=== PATIENT | female | born 1960 | race Caucasian/White ===

== ENCOUNTER → 2016-03-01 | Outpatient (CLI) | payer OTHER ==
[~2016-03-01] MED LIST: ASCO500T3 PO; DXY100 PO; FLAX12003 PO; MAGN1TAB PO; PROGESTERONE CREAM INT UTER
== END | disposition home or self-care (01) ==
LOC: C.PATHSPEC 17:39
PROVIDERS: ATTEND Plastic Surgery
DX: L57.0 Actinic keratosis (principal); L82.1 Other seborrheic keratosis

== ENCOUNTER 2016-04-15 16:06 | Observation (INO) | payer OTHER ==
[~2016-04-15] VITALS: Ht 162.6 cm; Wt 65.1 kg
--- NOTE | 2016-04-15 18:31 | EMERGENCY ROOM VISIT NOTE ---
History Report prepared by Dora: Seferino Sheikh Under the Supervision of: Dr. Chris Bowman M.D. First contact with patient: 18:21 Chief Complaint: CHEST PAIN Stated Complaint: CHEST PAIN,SOB,SENT FROM URGENT CARE History of Present Illness The patient is a 55 year old female who presents to the Emergency Room with complaints of intermittent chest pain that started around 0230 this morning. She says she woke up to go to the bathroom, and ate 2 pieces of chocolate cake, and then started feeling a bit of pressure in her chest, which was accompanied with nausea, shortness of breath, and tingling in her fingers. She notes that she then got up in the morning and felt alright, but then as the day went on, the pain started to worsen. The patient went to Urgent Care and was sent here. Currently, she feels okay and denies any pain. The patient says she has been stressed for the last 2 months due to her father dying of heart disease. She personally has no history of heart problems. The patient smokes around 1 to 2 packs per day. She has no history of abdominal surgeries. The patient denies any abdominal pain, numbness in her legs, arm or jaw pain. The patient has a history of hypertension. She is not diabetic. Source of History: patient Onset: Around 0230 this morning Position: chest Quality: pressure Timing: intermittent Associated Symptoms: + SOB, + nausea, No abdominal pain, No numbness Note: Associated symptoms: Tingling in fingers. Denies arm or jaw pain. Review of Systems See HPI for pertinent positives & negatives. A total of 10 systems reviewed and were otherwise negative. Past Medical & Surgical Medical Problems: (1) HTN (hypertension) Family History FHx: heart disease Hypertension Social History Smoking Status: Current Every Day Smoker Alcohol Use: occasionally Marital Status: Housing Status: lives with family Occupation Status: unemployed Current/Historical Medications Scheduled Ascorbic Acid (Vitamin C), 500 MG PO DAILY Flaxseed (Linseed) (Flaxseed Oil), 1 CAP PO DAILY Magnesium Chloride-Calcium Car (Nu-Mag 71.5-119 mg), 1 TAB PO DAILY [Progesterone Cream], INT UTER UD Allergies Coded Allergies: Amoxicillin (Verified Allergy, Severe, HIVES/TONGUE SWELLS, 04/15/16) Metronidazole (Verified Allergy, Unknown, 04/15/16) Penicillins (Verified Allergy, Unknown, 04/15/16) Uncoded Allergies: ANTIINF (Allergy, Unknown, 04/15/16) Physical Exam Vital Signs Date Time Temp Pulse Resp B/P Pulse Ox O2 Delivery O2 Flow Rate FiO2 04/15/16 19:59 83 18 145/90 97 Room Air 04/15/16 18:58 86 04/15/16 18:44 98 Room Air 04/15/16 18:39 85 26 125/84 97 Room Air 04/15/16 18:25 98 Room Air 04/15/16 17:03 62 24 126/82 100 Room Air 04/15/16 16:11 37.0 90 18 173/92 97 Room Air Physical Exam GENERAL: Patient is mildly anxious appearing and in no acute distress. HEENT: No acute trauma, normocephalic atraumatic, mucous membranes moist, no nasal congestion, no scleral icterus. NECK: No stridor, no adenopathy, no meningismus, trachea is midline. LUNGS: No dyspnea. Clear to auscultation and equal bilaterally. No wheeze, no rhonchi. HEART: Regular rate and rhythm. No murmurs, rubs, gallops appreciated. ABDOMEN: Soft, nontender, bowel sounds positive, no masses appreciated, no peritonitis. BACK: No midline tenderness, no CVA tenderness EXTREMITIES: Normal motion all extremities, no cyanosis, no edema. NEUROLOGIC: Alert and oriented, no acute motor or sensory deficits, no focal weakness, cranial nerves grossly intact. SKIN: No rash, no jaundice, no diaphoresis. Medical Decision & Procedures ER Provider Diagnostic Interpretation: X ray results are stated below per my interpretation and the radiologist's interpretation. CHEST ONE VIEW PORTABLE CLINICAL HISTORY: Chest Pain dyspnea COMPARISON STUDY: No previous studies for comparison. FINDINGS: Minimal poorly defined parenchymal infiltrate left base. Lungs otherwise appear clear. No evidence for cardiac enlargement. Diaphragms smooth. IMPRESSION: Poorly defined parenchymal infiltrate left base Electronically signed by: Nael Glasgow M.D. 04/15/2016 6:51 PM Dictated Date/Time: 04/15/2016 6:50 PM Laboratory Results 04/15/16 18:38 Red Blood Count 3.93, Mean Corpuscular Volume 96.9, Mean Corpuscular Hemoglobin 33.3, Mean Corpuscular Hemoglobin Concent 34.4, Mean Platelet Volume 10.2, Neutrophils (%) (Auto) 60.0, Lymphocytes (%) (Auto) 26.9, Monocytes (%) (Auto) 11.2, Eosinophils (%) (Auto) 1.0, Basophils (%) (Auto) 0.7, Neutrophils # (Auto ) 3.53, Lymphocytes # (Auto) 1.58, Monocytes # (Auto) 0.66, Eosinophils # (Auto ) 0.06, Basophils # (Auto) 0.04 04/15/16 18:38 Test 04/15/16 18:38 White Blood Count 5.88 K/uL (4.8-10.8) Red Blood Count 3.93 M/uL (4.2-5.4) Hemoglobin 13.1 g/dL (12.0-16.0) Hematocrit 38.1 % (37-47) Mean Corpuscular Volume 96.9 fL (80-100) Mean Corpuscular Hemoglobin 33.3 pg (25-34) Mean Corpuscular Hemoglobin Concent 34.4 g/dl (32-36) Platelet Count 281 K/uL (130-400) Mean Platelet Volume 10.2 fL (7.4-10.4) Neutrophils (%) (Auto) 60.0 % Lymphocytes (%) (Auto) 26.9 % Monocytes (%) (Auto) 11.2 % Eosinophils (%) (Auto) 1.0 % Basophils (%) (Auto) 0.7 % Neutrophils # (Auto) 3.53 K/uL (1.4-6.5) Lymphocytes # (Auto) 1.58 K/uL (1.2-3.4) Monocytes # (Auto) 0.66 K/uL (0.11-0.59) Eosinophils # (Auto) 0.06 K/uL (0-0.5) Basophils # (Auto) 0.04 K/uL (0-0.2) RDW Standard Deviation 49.0 fL (36.4-46.3) RDW Coefficient of Variation 13.7 % (11.5-14.5) Immature Granulocyte % (Auto) 0.2 % Immature Granulocyte # (Auto) 0.01 K/uL (0.00-0.02) Anion Gap 9.0 mmol/L (3-11) Est Creatinine Clear Calc Drug Dose 80.0 ml/min Estimated GFR () 113.1 Estimated GFR (Non- 97.6 BUN/Creatinine Ratio 12.3 (10-20) Calcium Level 8.7 mg/dl (8.5-10.1) Magnesium Level 2.3 mg/dl (1.8-2.4) Total Bilirubin 0.4 mg/dl (0.2-1) Direct Bilirubin < 0.1 mg/dl (0-0.2) Aspartate Amino Transf (AST/SGOT) 14 U/L (15-37) Alanine Aminotransferase (ALT/SGPT) 20 U/L (12-78) Alkaline Phosphatase 92 U/L (45-117) Total Creatine Kinase 66 U/L (26-192) Creatine Kinase MB 1.1 ng/ml (0.5-3.6) Creatine Kinase MB Ratio 1.7 (0-3.0) Troponin I 0.017 ng/ml (0-0.045) Total Protein 6.9 gm/dl (6.4-8.2) Albumin 3.7 gm/dl (3.4-5.0) Lipase 161 U/L (73-393) Laboratory results as reviewed by me. Medications Administered Medications (Trade) Dose Ordered Sig/Logan Route Start Time Stop Time Status Last Admin Dose Admin Aspirin (Aspirin Chew) 324 mg NOW STAT PO 04/15/16 19:36 04/15/16 19:38 DC 04/15/16 20:00 324 MG ECG Indication: chest pain Rate (beats per minute): 91 Rhythm: normal sinus Findings: no acute ischemic change, no ectopy ED Course 1821: The patient was evaluated in room B7. A complete history and physical exam was performed. 1927: I reevaluated the patient and she says she has no further chest pain. The patient verbally expressed understanding and agreement of the treatment plan. The patient will be evaluated for further treatment. 1935: Ordered Aspirin Chew 324 mg PO. 1949: I discussed the patient with Dr. Peter Sanches photographic artist - he will evaluate the patient for further treatment. Medical Decision Differential: Cardiac Ischemia (STEMI, NSTEMI, Unstable Angina, etc), Aortic Dissection, Arrhythmia, Pulmonary Embolism, Pneumonia, Pneumothorax, MSK, Infectious, Pericarditis/Myocarditis, Esophageal Rupture, Gastrointestinal, amongst other pathologies entertained. 55 yr old pleasant female notes intermittent substernal chest pressure over last 24 hours. Heavy smoker with HTN and multiple family members with CAD. She has several cardiac risk factors and a non-negative though wnl trop. CXR clear with normal other labs. With her CAD risk factors and description of pain I do not feel that ED cardiac rule out reasonable and thus will bring in to hospitalist service for further evaluation/treatment. Consults Time Called: 1939 Consulting Physician: Dr. Peter Sanches photographic artist Returned Call: 1949 I discussed the patient with Dr. Peter Sanches photographic artist - he will evaluate the patient for further treatment. Impression Primary Impression: Substernal chest pain Scribe Attestation The scribe's documentation has been prepared under my direction and personally reviewed by me in its entirety. I confirm that the note above accurately reflects all work, treatment, procedures, and medical decision making performed by me. Departure Information Dispostion Being Evaluated By Hospitalist Referrals Mercy Linares D.O. (PCP) Patient Instructions My [facility]
[2016-04-15 18:52] LABS: BASO % 0.7 %; BASO ABS # 0.04 K/uL (0-0.2); COMPLETE YES; HEMATOCRIT 38.1 % (37-47); IG% 0.2 %; LYMPH % 26.9 %; LYMPH ABS # 1.58 K/uL (1.2-3.4); MEAN CELL VOLUME 96.9 fL (80-100); MEAN CORPUSCULAR HEMOGLOBIN 33.3 pg (25-34); MEAN CORPUSCULAR HGB CONC 34.4 g/dl (32-36); MEAN PLATELET VOLUME 10.2 fL (7.4-10.4); MONO % 11.2 %; PLATELET COUNT 281 K/uL (130-400); RED BLOOD COUNT 3.93 M/uL (4.2-5.4); WHITE BLOOD COUNT 5.88 K/uL (4.8-10.8)
--- NOTE | 2016-04-15 18:52 | DIAGNOSTIC IMAGING REPORT ---
CHEST ONE VIEW PORTABLE CLINICAL HISTORY: Chest Pain dyspnea COMPARISON STUDY: No previous studies for comparison. FINDINGS: Minimal poorly defined parenchymal infiltrate left base. Lungs otherwise appear clear. No evidence for cardiac enlargement. Diaphragms smooth. IMPRESSION: Poorly defined parenchymal infiltrate left base Electronically signed by: Nael Glasgow M.D. 04/15/2016 6:51 PM Dictated Date/Time: 04/15/2016 6:50 PM
[2016-04-15 19:10] LABS: BUN/CREATININE RATIO 12.3 (10-20); CALCIUM 8.7 mg/dl (8.5-10.1); CREATININE 0.67 mg/dl (0.60-1.20); POTASSIUM 3.6 mmol/L (3.5-5.1)
[2016-04-15 19:15] LABS: CKMB/CK RATIO 1.7 (0-3.0)
[2016-04-15] MEDS ORDERED: MAGN1TAB PO (19:17)
[2016-04-15] MEDS ORDERED: FLAX12003 PO (19:17)
[2016-04-15] MEDS ORDERED: ASCO500T3 PO (19:17)
[2016-04-15] MEDS ORDERED: PROGESTERONE CREAM INT UTER (19:17)
[2016-04-15] MEDS ORDERED: ASPIRIN 324 MG CHEW PO STA (19:36)
[2016-04-15 20:55] LABS: ALKALINE PHOSPHATASE 92 U/L (45-117); ALT/SGPT 20 U/L (12-78); AST/SGOT 14 U/L (15-37)
[2016-04-15] MEDS ORDERED: MoRPHine SULFATE 4 MG/ML 1 ML CARP\\VIAL IV PRN (21:45)
[2016-04-15] MEDS ORDERED: NITROGLYCERIN 0.4 MG SL PER TAB CHARGE SL PRN (21:45)
[2016-04-15] MEDS ORDERED: TRAMADOL HCL 50 MG TAB PO PRN (21:45)
[2016-04-15] MEDS ORDERED: IV FLUIDS COMPLETED PRN (21:45)
[2016-04-15] MEDS ORDERED: ONDANSETRON INJ 2 MG/ML 2 ML VIAL IV PRN (21:45)
[2016-04-15] MEDS ORDERED: ACETAMINOPHEN 325 MG TAB PO PRN (21:45)
[2016-04-15] MEDS ORDERED: DOXYCYCLINE HYCLATE 100 MG CAP PO STA (22:06)
[2016-04-15 22:29] LABS: PARTIAL THROMBOPLASTIN RATIO 1.1
[2016-04-15 23:38] VITALS: BP 114/78; PULSE 78; TEMP 36.7; O2SAT 97; Ht 162.6 cm; Wt 65.1 kg
[2016-04-16 03:10] LABS: BASO % 0.7 %; BASO ABS # 0.03 K/uL (0-0.2); COMPLETE YES; EOS % 3.4 %; HEMATOCRIT 37.1 % (37-47); IG% 0.4 %; LYMPH % 31.9 %; LYMPH ABS # 1.42 K/uL (1.2-3.4); MEAN CELL VOLUME 97.4 fL (80-100); MEAN CORPUSCULAR HEMOGLOBIN 33.1 pg (25-34); MONO % 16.4 %; NEUT % 47.2 %; PLATELET COUNT 260 K/uL (130-400); RED BLOOD COUNT 3.81 M/uL (4.2-5.4); WHITE BLOOD COUNT 4.45 K/uL (4.8-10.8)
[2016-04-16 03:21] VITALS: BP 146/88; PULSE 71; TEMP 36.9; O2SAT 98
[2016-04-16 03:34] LABS: CHOLESTEROL 147 mg/dl (0-200); CHOLESTEROL/HDL RATIO 2.1; HDL CHOLESTEROL 69 mg/dl; LDL CHOLESTEROL CALCULATED 50 mg/dl; TRIGLYCERIDES 142 mg/dl (0-150); VERY LOW DENSITY LIPOPROT CALC 28 mg/dl
--- NOTE | 2016-04-16 04:26 | HISTORY & PHYSICAL EXAMINATION ---
DATE OF ADMISSION: 04/15/2016 PRIMARY CARE PHYSICIAN: Dr. Linares. CHIEF COMPLAINT: Chest pain. Hx obtained from px and records. HISTORY OF PRESENT ILLNESS: Medical history significant for situational HTN and ongoing tobacco abuse. Patient had substernal discomfort, pressure like, with some shortness of breath after eating couple bites of cakes, not burning. No previous episodes. Patient admits to some dry to junky cough symptoms. No fever, no chills. No sick contacts. Admits to some personal stressors more than usual of late. Patient is currently comfortable. MEDICAL HISTORY: As above. SURGERIES: Some gynecologic procedures. HOME MEDICATIONS: Include ascorbic acid, flaxseed, mag, progesterone. ALLERGIES: AMOXICILLIN, PENICILLIN. FAMILY HISTORY: Heart disease. PERSONAL AND SOCIAL HISTORY: Pack daily. No chronic intake of alcoholic beverages. Homemaker. REVIEW OF SYSTEMS: As per HPI. all other ROS negative PHYSICAL EXAMINATION: VITAL SIGNS: Blood pressure was noted to be 130/80, pulse 90, RR 20, temperature 37, O2 sats 100 on room air. GENERAL: Noted to be slightly anxious, no respiratory distress. SKIN: Normal color. HEENT: [place] palpable conjunctivae. Dry mucosa. NECK: No JVD. LUNGS: Clear to auscultation. No anterior chest tenderness. HEART: Regular rate and rhythm. ABDOMEN: Soft. EXTREMITIES: No edema. no tenderness NEUROLOGIC: No gross focality. LABORATORY DATA: Hemoglobin was 13, hematocrit 38, white cell count 5, platelets 280. Sodium 140, potassium 3.6, chloride 105, CO2 28, BUN 8, creatinine 0.6, glucose 100. Troponin was noted to be 0.07. D-dimer was normal. EKG no ischemia. CXR possible infiltrate in the left base ASSESSMENT: 1. Atypical chest pain ? transient esophageal spasm rule out acute coronary syndrome anxiety contributory 2. CAP, no sepsis 3. situational HTN as per records 4. ongoing tobacco abuse. PLAN: Observation PCU ASA for now for CAD prevention until ACS ruled out, Follow troponin. 2D echo in the morning. RE cp Home in AM px symptomatically well, AM troponin and resting 2D echo normal. Patient refuses stress test. Family member during stress test before. Doxycycline for pneumonia. anxiolytic prn Nicotine patch. DVT prophylaxis, Lovenox subQ. Full code. MTDD
[2016-04-16 07:42] VITALS: BP 155/89; PULSE 74; TEMP 36.5; O2SAT 95
[2016-04-16 07:52] LABS: PROTHROMBIN TIME (PATIENT) 10.5 SECONDS (9.0-12.0)
[2016-04-16] MEDS: DOXYCYCLINE HYCLATE 100 MG CAP PO SCH ×2 (08:51→15:40)
[2016-04-16] MEDS ORDERED: ASPIRIN 81 MG ECTAB PO SCH (09:00)
[2016-04-16] MEDS ORDERED: ENOXAPARIN 40 MG/0.4 ML SYR SC SCH (09:00)
[2016-04-16] MEDS ORDERED: NICOTINE 21 MG/24 HR TDSY TD SCH (09:00)
[2016-04-16 11:55] VITALS: BP 135/83; PULSE 74; TEMP 36.9; O2SAT 97
[2016-04-16 11:56] VITALS: O2SAT 95
--- NOTE | 2016-04-16 14:02 | ECHOCARDIOGRAM REPORT ---
*NOTICE TO RECEIVING CONSTITUTION PARTY AGENCY This information is strictly Confidential and protected under [place] law. [place] law prohibits you from making any further disclosure of this information unless further disclosure is expressly permitted by the written consent of the person to whom it pertains or is authorized by law. A general authorization for the release of medical or other information is not sufficient for this purpose. Hospital accepts no responsibility if the information is made available to any other person, INCLUDING THE PATIENT. Interpretation Summary * Name: GENI CHOUDHARY Study Date: 04/16/2016 10:39 AM BP: 146/88 mmHg * Patient Location: [facility] HR: 71 * : 1960 (M/d/yyyy) Gender: Female Height: 64 in * Age: 55 yrs Ethnicity: [place] Weight: 144 lb * Ordering Physician: Jan Green * Performed By: Santa Valdivia * * Reason For Study: CHEST PAIN * BSA: 1.7 m2 * -- Conclusions -- * The left ventricular wall motion is normal. * The LV Ejection Fraction = 60-65%. * Grade I diastolic dysfunction, (abnormal relaxation pattern). * There is no significant valvular heart disease. Procedure Details * A complete two-dimensional transthoracic echocardiogram was performed (2D, M-mode, Doppler and color flow Doppler). Left Ventricle * The left ventricle is normal in size. * There is normal left ventricular wall thickness. * Left ventricular systolic function is normal. * Ejection Fraction = 60-65%. * The left ventricular wall motion is normal. Right Ventricle * The right ventricle is normal size. * The right ventricular systolic function is normal as assessed by tricuspid annular plane systolic excursion (TAPSE) (normal >1.5 cm). Atria * The left atrial size is normal. * Right atrial size is normal. * There is no evidence of atrial septal defect, but resolution does not allow assessment for a patent foramen ovale. Mitral Valve * The mitral valve is normal. * There is no mitral valve stenosis. * Significant mitral regurgitation is absent. Tricuspid Valve * The tricuspid valve is normal. * There is no tricuspid stenosis. * Significant tricuspid regurgitation is absent. * Doppler findings do not suggest pulmonary hypertension. Aortic Valve * The aortic valve is trileaflet. * Aortic stenosis is absent. * There is no significant aortic regurgitation. Pulmonic Valve * The pulmonary valve is not well seen, but the Doppler examination is normal without significant regurgitation or stenosis. Great Vessels * The aortic root and proximal ascending aorta are normal sized. Pericardium/Pleural * There is no pericardial effusion. Great Vessels * Normal inferior vena cava diameter and respiratory variation suggests normal central venous pressure. Left Ventricular Diastolic Function * Grade I diastolic dysfunction, (abnormal relaxation pattern). MMode 2D Measurements and Calculations IVSd 1.8 cm IVSs 2.0 cm LVIDd 3.3 cm LVIDs 2.2 cm LVPWd 1.0 cm LVPWs 1.3 cm IVS/LVPW 1.8 FS 32.2 % EDV(Teich) 44.4 ml ESV(Teich) 17.0 ml EF(Teich) 61.7 % EDV(cubed) 36.2 ml ESV(cubed) 11.3 ml EF(cubed) 68.8 % % IVS thick 11.0 % % LVPW thick 33.4 % LV mass(C)d 162.6 grams LV mass(C)dI 95.6 grams/m\S\2 LV mass(C)s 137.8 grams LV mass(C)sI 81.0 grams/m\S\2 CO(Teich) 1.9 l/min CI(Teich) 1.1 l/min/m\S\2 SV(Teich) 27.4 ml SI(Teich) 16.1 ml/m\S\2 CO(cubed) 1.7 l/min CI(cubed) 1.0 l/min/m\S\2 SV(cubed) 24.9 ml SI(cubed) 14.7 ml/m\S\2 ACS 1.3 cm LA dimension 3.5 cm asc Aorta Diam 3.7 cm LVOT diam 2.0 cm LVOT area 3.1 cm\S\2 LVAd ap4 24.7 cm\S\2 LVLd ap4 7.6 cm EDV(MOD-sp4) 65.7 ml LVAs ap4 13.5 cm\S\2 LVLs ap4 6.4 cm ESV(MOD-sp4) 24.1 ml EF(MOD-sp4) 63.3 % LVAd ap2 20.2 cm\S\2 LVLd ap2 7.2 cm EDV(MOD-sp2) 48.0 ml LVAs ap2 11.0 cm\S\2 LVLs ap2 5.9 cm ESV(MOD-sp2) 17.9 ml EF(MOD-sp2) 62.7 % CO(MOD-sp4) 2.9 l/min CI(MOD-sp4) 1.7 l/min/m\S\2 SV(MOD-sp4) 41.6 ml SI(MOD-sp4) 24.5 ml/m\S\2 CO(MOD-sp2) 2.1 l/min CI(MOD-sp2) 1.2 l/min/m\S\2 SV(MOD-sp2) 30.1 ml SI(MOD-sp2) 17.7 ml/m\S\2 Doppler Measurements and Calculations MV E max arnaldo 48.3 cm/sec MV A max arnaldo 37.9 cm/sec MV E/A 1.3 MV dec time 0.14 sec Ao V2 max 107.5 cm/sec Ao max PG 4.6 mmHg Ao max PG (full) 1.3 mmHg LYNDA(V,A) 2.7 cm\S\2 LYNDA(V,D) 2.7 cm\S\2 LV V1 max PG 3.3 mmHg LV V1 mean PG 1.7 mmHg LV V1 max 90.6 cm/sec LV V1 mean 61.8 cm/sec LV V1 VTI 21.6 cm SV(LVOT) 67.9 ml SI(LVOT) 39.9 ml/m\S\2 PA V2 max 79.5 cm/sec PA max PG 2.5 mmHg PI end-d arnaldo 119.4 cm/sec
[2016-04-16] MEDS ORDERED: DXY100 PO (14:54)
--- NOTE | 2016-04-16 14:54 | Discharge Instructions ---
Discharge Instructions Admission Reason for Admission: Substernal Chest Pain Discharge Discharge Diagnosis / Problem: CHEST PAIN /NO EVICENCE OF CARDIAC SYMPTOM / PNEUMONIA Discharge Goals Goal(s): Improve disease control Activity Recommendations Activity Limitations: resume your previous activity . Instructions / Follow-Up Instructions / Follow-Up HOSPITAL FOLLOW UP ON 04/23/2016 @ 10:[address] Mercy Linares, DO [facility] Current Hospital Diet Patient's current hospital diet: AHA Diet (Heart Healthy) Discharge Diet Recommended Diet: AHA Diet (Heart Healthy) Pending Studies Studies pending at discharge: no Laboratory Results Lipid Panel Test 04/16/16 03:00 Range/Units Triglycerides Level 142 0-150 mg/dl Cholesterol Level 147 0-200 mg/dl HDL Cholesterol 69 mg/dl Cholesterol/HDL Ratio 2.1 LDL Cholesterol, Calculated 50 mg/dl Medical Emergencies . Who to Call and When: Medical Emergencies: If at any time you feel your situation is an emergency, please call 911 immediately. . Non-Emergent Contact Non-Emergency issues call your: Primary Care Provider . . "Provider Documentation" section prepared by Hope Cooper. VTE Core Measure Inpt VTE Proph given/why not?: Enoxaparin (Lovenox)SQ
[2016-04-16 15:24] VITALS: BP 135/83; PULSE 74; TEMP 36.9; O2SAT 95
--- NOTE | 2016-04-16 16:22 | Progress Note ---
Internal Med Progress Note Date of Service: Apr 16, 2016. Provider Documentation: SUBJECTIVE: no complain of chest pain no discomfort or severe mid chest discomfort with meals has non productive cough no fever or chills OBJECTIVE: Vital Signs-as noted below Exam: General-no sign of distress, anxious Eyes-sclera non icteric ENT-NAD Neck-no thyromegaly Lungs-CTA Heart-regular S1/S2, no lower ext edema , no JVD Abdomen-soft, non tender Extremities-no rash or deformity Neuro-no focal deficit Lab data as noted below. ASSESSMENT & PLAN: CHEST PAIN : atypical for angina symptom resolved since admission no SOB ,no COOPER EKG -no ischemic change serial cardiac markers are negative ECHO : no wall motion abnormality , EF 60-65 % , grade 1 diastolic dysfunction stable to be discharged home today does not want to have a stress test Family physician follow up as out patient CHEST DISCOMFORT AFTER MEALS feels sharp pain radiation to back in mid chest after meals , had 3 episodes in past 2 days none since admission possible esophageal spasm denies of any GERD symptoms. no dysphagia or feeling of food getting stuck in middle chest pt is counselled for small portion , chewing food adequately will benefit with out pt GI eval and possible EGD PNEUMONIA : possible contributing the chest pain no fever , normal white count has non productive cough Cxray Poorly defined parenchymal infiltrate left base empiric ABx with Doxycycline for 5 days DVT PROPHYLAXIS [sub q Lovenox DISPOSITION Discharge home today Vital Signs: Date Time Temp Pulse Resp B/P Pulse Ox O2 Delivery O2 Flow Rate FiO2 04/16/16 15:24 36.9 74 19 95 Room Air 04/16/16 11:56 95 Room Air 04/16/16 11:55 36.9 74 19 135/83 97 Room Air 04/16/16 07:58 Room Air 04/16/16 07:42 36.5 74 19 155/89 95 Room Air 04/16/16 04:10 Room Air 04/16/16 03:21 36.9 71 18 146/88 98 Room Air 04/15/16 23:38 36.7 78 20 114/78 97 Room Air 04/15/16 22:55 91 18 118/83 97 04/15/16 19:59 83 18 145/90 97 Room Air 04/15/16 18:58 86 04/15/16 18:44 98 Room Air 04/15/16 18:39 85 26 125/84 97 Room Air 04/15/16 18:25 98 Room Air 04/15/16 17:03 62 24 126/82 100 Room Air Lab Results: Results Past 24 Hours Test 04/15/16 18:38 04/16/16 03:00 04/16/16 06:55 Range/Units White Blood Count 5.88 4.45 4.8-10.8 K/uL Red Blood Count 3.93 3.81 4.2-5.4 M/uL Hemoglobin 13.1 12.6 12.0-16.0 g/dL Hematocrit 38.1 37.1 37-47 % Mean Corpuscular Volume 96.9 97.4 80-100 fL Mean Corpuscular Hemoglobin 33.3 33.1 25-34 pg Mean Corpuscular Hemoglobin Concent 34.4 34.0 32-36 g/dl Platelet Count 281 260 130-400 K/uL Mean Platelet Volume 10.2 10.0 7.4-10.4 fL Neutrophils (%) (Auto) 60.0 47.2 % Lymphocytes (%) (Auto) 26.9 31.9 % Monocytes (%) (Auto) 11.2 16.4 % Eosinophils (%) (Auto) 1.0 3.4 % Basophils (%) (Auto) 0.7 0.7 % Neutrophils # (Auto) 3.53 2.10 1.4-6.5 K/uL Lymphocytes # (Auto) 1.58 1.42 1.2-3.4 K/uL Monocytes # (Auto) 0.66 0.73 0.11-0.59 K/uL Eosinophils # (Auto) 0.06 0.15 0-0.5 K/uL Basophils # (Auto) 0.04 0.03 0-0.2 K/uL RDW Standard Deviation 49.0 49.4 36.4-46.3 fL RDW Coefficient of Variation 13.7 13.7 11.5-14.5 % Immature Granulocyte % (Auto) 0.2 0.4 % Immature Granulocyte # (Auto) 0.01 0.02 0.00-0.02 K/uL Activated Partial Thromboplast Time 28.8 21.0-31.0 SECONDS Partial Thromboplastin Ratio 1.1 D-Dimer 290 0-500 ug/L FEU Sodium Level 142 136-145 mmol/L Potassium Level 3.6 3.5-5.1 mmol/L Chloride Level 105 98-107 mmol/L Carbon Dioxide Level 28 21-32 mmol/L Anion Gap 9.0 3-11 mmol/L Blood Urea Nitrogen 8 7-18 mg/dl Creatinine 0.67 0.60-1.20 mg/dl Est Creatinine Clear Calc Drug Dose 80.0 ml/min Estimated GFR () 113.1 Estimated GFR (Non- 97.6 BUN/Creatinine Ratio 12.3 10-20 Random Glucose 105 70-99 mg/dl Calcium Level 8.7 8.5-10.1 mg/dl Magnesium Level 2.3 1.8-2.4 mg/dl Total Bilirubin 0.4 0.2-1 mg/dl Direct Bilirubin < 0.1 0-0.2 mg/dl Aspartate Amino Transf (AST/SGOT) 14 15-37 U/L Alanine Aminotransferase (ALT/SGPT) 20 12-78 U/L Alkaline Phosphatase 92 45-117 U/L Total Creatine Kinase 66 26-192 U/L Creatine Kinase MB 1.1 0.5-3.6 ng/ml Creatine Kinase MB Ratio 1.7 0-3.0 Troponin I 0.017 < 0.015 0-0.045 ng/ml Total Protein 6.9 6.4-8.2 gm/dl Albumin 3.7 3.4-5.0 gm/dl Lipase 161 73-393 U/L Triglycerides Level 142 0-150 mg/dl Cholesterol Level 147 0-200 mg/dl HDL Cholesterol 69 mg/dl LDL Cholesterol, Calculated 50 mg/dl VLDL Cholesterol, Calculated 28 mg/dl Cholesterol/HDL Ratio 2.1 Prothrombin Time 10.5 9.0-12.0 SECONDS Prothromb Time International Ratio 1.0 0.9-1.1
--- NOTE | 2016-04-16 16:24 | Discharge Summary ---
Discharge Summary Admission Date: Apr 15, 2016 at 21:16 Discharge Date: Apr 16, 2016 Discharge Disposition: Home Principal Diagnosis: CHEST PAIN /NO EVIDENCE OF CARDIAC SYMPTOM /PNEUMONIA Medication Reconciliation New Medications: Doxycycline Hyclate (Doxycycline Hyclate) 100 Mg Cap 100 MG PO BID for 4 Days, #8 CAP Continued Medications: Ascorbic Acid (Vitamin C) 500 Mg Tab 500 MG PO DAILY Flaxseed (Linseed) (Flaxseed Oil) 1 Cap Cap 1 CAP PO DAILY Magnesium Chloride-Calcium Car (Nu-Mag 71.5-119 mg) 1 Tab Tab 1 TAB PO DAILY [Progesterone Cream] () INT UTER UD 2WEEKS ON/ 2 WEEKS OFF Admission Information HPI (per Admitting provider): DATE OF ADMISSION: 04/15/2016 PRIMARY CARE PHYSICIAN: Dr. Linares. CHIEF COMPLAINT: Chest pain. Hx obtained from px and records. HISTORY OF PRESENT ILLNESS: Medical history significant for situational HTN and ongoing tobacco abuse. Patient had substernal discomfort, pressure like, with some shortness of breath after eating couple bites of cakes, not burning. No previous episodes. Patient admits to some dry to junky cough symptoms. No fever, no chills. No sick contacts. Admits to some personal stressors more than usual of late. Patient is currently comfortable. MEDICAL HISTORY: As above. SURGERIES: Some gynecologic procedures. HOME MEDICATIONS: Include ascorbic acid, flaxseed, mag, progesterone. ALLERGIES: AMOXICILLIN, PENICILLIN. FAMILY HISTORY: Heart disease. PERSONAL AND SOCIAL HISTORY: Pack daily. No chronic intake of alcoholic beverages. Homemaker. REVIEW OF SYSTEMS: As per HPI. all other ROS negative Physical Exam (per Admitting): PHYSICAL EXAMINATION: VITAL SIGNS: Blood pressure was noted to be 130/80, pulse 90, RR 20, temperature 37, O2 sats 100 on room air. GENERAL: Noted to be slightly anxious, no respiratory distress. SKIN: Normal color. HEENT: [place] palpable conjunctivae. Dry mucosa. NECK: No JVD. LUNGS: Clear to auscultation. No anterior chest tenderness. HEART: Regular rate and rhythm. ABDOMEN: Soft. EXTREMITIES: No edema. no tenderness NEUROLOGIC: No gross focality. Hospital Course CHEST PAIN : atypical for angina symptom resolved since admission no SOB ,no COOPER EKG -no ischemic change serial cardiac markers are negative ECHO : no wall motion abnormality , EF 60-65 % , grade 1 diastolic dysfunction stable to be discharged home today does not want to have a stress test Family physician follow up as out patient CHEST DISCOMFORT AFTER MEALS feels sharp pain radiation to back in mid chest after meals , had 3 episodes in past 2 days none since admission possible esophageal spasm denies of any GERD symptoms. no dysphagia or feeling of food getting stuck in middle chest pt is counselled for small portion , chewing food adequately will benefit with out pt GI eval and possible EGD PNEUMONIA : possible contributing the chest pain no fever , normal white count has non productive cough Cxray Poorly defined parenchymal infiltrate left base empiric ABx with Doxycycline for 5 days DVT PROPHYLAXIS [sub q Lovenox DISPOSITION Discharge home today Discharge Instructions DI: Medical v4 Discharge Instructions Admission Reason for Admission: Substernal Chest Pain Discharge Discharge Diagnosis / Problem: CHEST PAIN /NO EVIDENCE OF CARDIAC SYMPTOM / PNEUMONIA Discharge Goals Goal(s): Improve disease control Activity Recommendations Activity Limitations: resume your previous activity . Instructions / Follow-Up Instructions / Follow-Up HOSPITAL FOLLOW UP ON 04/23/2016 @ 10:[address] Mercy Linares, DO [facility] Current Hospital Diet Patient's current hospital diet: AHA Diet (Heart Healthy) Discharge Diet Recommended Diet: AHA Diet (Heart Healthy) Pending Studies Studies pending at discharge: no Laboratory Results Lipid Panel Test 04/16/16 03:00 Range/Units Triglycerides Level 142 0-150 mg/dl Cholesterol Level 147 0-200 mg/dl HDL Cholesterol 69 mg/dl Cholesterol/HDL Ratio 2.1 LDL Cholesterol, Calculated 50 mg/dl Medical Emergencies . Who to Call and When: Medical Emergencies: If at any time you feel your situation is an emergency, please call 911 immediately. . Non-Emergent Contact Non-Emergency issues call your: Primary Care Provider . . "Provider Documentation" section prepared by Hope Cooper. VTE Core Measure Inpt VTE Proph given/why not?: Enoxaparin (Lovenox)SQ
== END 2016-04-16 15:45 | disposition home or self-care (01) ==
LOC: ENRESERVTM → ENRESERVDT → C.EDB 16:07 → C.2T 21:16
PROVIDERS: ADMIT Hospitalist; ATTEND Hospitalist
DX: R07.89 Other chest pain (principal); J18.9 Pneumonia, unspecified organism; F17.210 Nicotine dependence, cigarettes, uncomplicated; I10 Essential (primary) hypertension; Z82.49 Family history of ischemic heart disease and other diseases of the circulatory system

== ENCOUNTER → 2016-07-04 | Outpatient (CLI) | payer OTHER | END | disposition home or self-care (01) | LOC: C.PAPS 09:06 | PROVIDERS: ATTEND Obstetrics & Gynecology | DX: Z12.4 Encounter for screening for malignant neoplasm of cervix (principal); D25.9 Leiomyoma of uterus, unspecified ==

== ENCOUNTER → 2017-07-16 | Outpatient (CLI) | payer OTHER | END | disposition home or self-care (01) | LOC: C.PAPS 15:44 | PROVIDERS: ATTEND Obstetrics & Gynecology | DX: Z12.4 Encounter for screening for malignant neoplasm of cervix (principal) ==

== ENCOUNTER → 2017-07-16 | Outpatient (CLI) | payer OTHER | END | disposition home or self-care (01) | LOC: C.LABSPEC 15:01 | PROVIDERS: ATTEND Obstetrics & Gynecology | DX: R30.0 Dysuria (principal); N76.0 Acute vaginitis ==

== ENCOUNTER 2021-10-25 16:41 | Inpatient (IN) ==
[~2021-10-25 16:41] MED LIST changes: -ASCO500T3 PO; -DXY100 PO; -FLAX12003 PO; +FOLIC ACID 1 MG TAB PO SCH; -MAGN1TAB PO; -PROGESTERONE CREAM INT UTER; +THIAMINE HCL 100 MG TAB PO SCH
--- NOTE | 2021-10-25 17:02 | Emergency Department Note ---
Impression & Plan Alcohol withdrawal, Nausea & vomiting, Transaminitis, Hyponatremia ED Provider Note NAME: GENI CHOUDHARY AGE: 60 SEX: F : 1960 ARRIVES VIA: Ambulance INFORMANT: [Patient][, ] ED PROVIDER(S): [Mushtaq Rodas MD] Chief Complaint: Nausea vomiting HPI: Patient presents due to concern for nausea vomiting in the setting of recent diarrheal illness over approximately week in duration. The patient really had the nausea and vomiting beginning today. The patient denies any known sick contacts or recent travel. No stream or well water the patient had seen her primary care doctor and started on Imodium. The patient does have the "shakes." The patient is a daily drinker and family were bedside states that she will drink typically anywhere from 5-10 beers daily. The patient last had a drink on Saturday. Patient denies any chest pains or shortness of breath she does complain of some abdominal cramping and discomfort secondary to the vomiting. Patient is unsure as whether or not she has had some associated blood in the vomit. Patient does not take any blood thinning medications. Patient did try to take 2 Pepto-Bismol for her symptoms today but was unable to keep it down. ROS: See HPI for pertinent positives and negatives. A total of 10 systems were reviewed and otherwise negative. Past medical history: See below Surgical history: See below Social history: See below Physical Exam: GENERAL: Mildly uncomfortable in appearance. EYE EXAM: Normal conjunctiva. PERRL, no anisocoria and EOM's grossly intact w/o pain. NECK: Supple, no nuchal rigidity, no adenopathy, non-tender. No signs of meningismus. FROM of the neck with good chin to chest and neck extension. No stridor. LUNGS: Clear to auscultation. Normal chest wall mechanics. HEART: NSR, no MRG. ABDOMEN: Abdomen soft, non-tender, normo-active bowel sounds, no masses, no rebound or guarding. BACK: No CVA TTP. SKIN: No rashes and no bruising. UPPER EXTREMITIES: Upper extremities are grossly normal. Bilateral upper extremity tremors. LOWER EXTREMITIES: Grossly normal, no edema. NEURO EXAM: A&O x3, cranial nerves II-XII grossly intact, normal speech, moves all 4 extremities. Differential diagnoses: Alcohol intoxication, toxicologic, infection, hypoglycemia, electrolyte abnormalities, cardiac sources, intracerebral event, neurologic, trauma, as well as other pathologies. Course: Patient was seen and evaluated the bedside. Full history physical exam was performed. EKG interpreted by me Sinus, rate of 59, normal ME and QRS, normal axis, no obvious ST elevations. Imaging Studies: See Below Cardiac monitoring: An order was placed for continuous cardiac monitoring. The monitor shows a rate of 88 with sinus rhythm. MDM: Patient was seen due to concern for nausea vomiting the setting of recent diarrheal illness. Blood work is obtained along with an alcohol the patient was given Ativan and banana bag. Patient's blood work shows a white count of 9 with a normal H&H and platelet count. The patient's kidney function is unremarkable. The patient does have hyponatremia which may be secondary to her alcohol use. Patient's bilirubin and AST are slightly elevated which again also may be consistent with the patient's alcohol use. The patient has more diffuse abdominal discomfort than localized right upper quadrant pain. Upon reassessment the patient did have improvement in symptoms and was able to tolerate by mouth. Alcohol negative. COVID-negative. Chest x-ray no acute findings. Patient was ordered Librium as she was able to tolerate by mouth. I did speak the on-call hospitalist Dr. Green and the patient was admitted to the medicine service. Critical Care: I have personally spent 36 minutes of critical care time in direct management of this patient. This includes bedside care, interpretation of diagnostic studies, and testing, discussion with consultants, patient, and family members, and other require inpatient management activities. This 36 minutes is in excess of all separately billable procedures. Past Med/Surg History Medical History Fibroid uterus Surgical History History of left oophorectomy Status post hysteroscopic ablation of endometrium Family History Mother Breast cancer Other No pertinent family history Denies family history of Ovarian cancer Prostate cancer Colorectal cancer Social History Smoking Status: Current every day smoker Tobacco Type: Cigarettes Do You Dip or Chew Tobacco: No; Tobacco Cessation Education Requested by Patient: No Hx Alcohol Use: Yes Alcohol type: beer Alcohol Intake Frequency: 4 or More x per/Week Alcohol Intake Frequency Comment: 5-10 beers/day Hx Substance Use: No Preferred Language: Armenian Health Policy Nurse Required: No Beliefs That Will Affect Care: None Current Living Situation: Spouse Other Information That Helps Us Care for You: No Feels Safe at Home: Yes Safety Concerns: Feels Safe At This Time Assistive Devices: Glasses Allergies Allergies Allergy/AdvReac Type Severity Reaction Status Date / Time amoxicillin Allergy Severe HIVES/TONGUE Verified 05/31/21 11:18 SWELLS metronidazole Allergy Unknown TOES Verified 05/31/21 11:18 SWELLING nickel Allergy Unknown RASH/ITCHIN Verified 05/31/21 11:18 G Penicillins Allergy Unknown SWELLING Verified 05/31/21 11:18 ALL OVER BODY Home Meds Home Medications Medication Instructions Recorded Confirmed ascorbic acid (vitamin C) 250 mg PO DAILY 10/26/21 10/26/21 calcium 150 mg PO HS 10/26/21 10/26/21 ferrous sulfate 325 mg PO BID 10/26/21 10/26/21 flaxseed 1,000 mg PO HS 10/26/21 10/26/21 magnesium 200 mg PO HS 10/26/21 10/26/21 Results & Data (ED) Vital Signs Vital Signs - 24 hr 10/25/21 16:50 10/25/21 18:44 10/25/21 16:48 Temperature 36.7 C Temperature Source Oral Pulse Rate 82 98 H 108 H Pulse Rhythm Regular Regular Pulse Strength Normal Respiratory Rate 23 22 24 Respiratory Effort / Characteristics Non-Labored Spontaneous Respiratory Depth Normal Respiratory Pattern Regular Blood Pressure Blood Pressure Mean Pulse Oximetry 99 96 99 Oxygen Delivery Method Room Air Room Air Room Air Sepsis Recent Fever Within 48 Hours No Sepsis New/Unexplained Change in Mental Status N/A Sepsis Action Taken by Nursing No Action Required 10/25/21 16:49 10/25/21 16:49 10/25/21 17:00 Temperature Temperature Source Pulse Rate 87 92 H Pulse Rhythm Pulse Strength Respiratory Rate 25 H 25 H Respiratory Effort / Characteristics Respiratory Depth Respiratory Pattern Blood Pressure 187/156 H Blood Pressure Mean 166 Pulse Oximetry 91 99 Oxygen Delivery Method Room Air Room Air Sepsis Recent Fever Within 48 Hours Sepsis New/Unexplained Change in Mental Status Sepsis Action Taken by Nursing 10/25/21 17:15 08/31/22 17:26 10/25/21 17:26 Temperature Temperature Source Pulse Rate 92 H 97 H Pulse Rhythm Pulse Strength Respiratory Rate 19 25 H Respiratory Effort / Characteristics Respiratory Depth Respiratory Pattern Blood Pressure 186/97 H Blood Pressure Mean 126 Pulse Oximetry 100 92 Oxygen Delivery Method Room Air Room Air Sepsis Recent Fever Within 48 Hours Sepsis New/Unexplained Change in Mental Status Sepsis Action Taken by Nursing 10/25/21 17:30 10/25/21 17:45 10/25/21 18:00 Temperature Temperature Source Pulse Rate 78 86 98 H Pulse Rhythm Pulse Strength Respiratory Rate 19 28 H 18 Respiratory Effort / Characteristics Respiratory Depth Respiratory Pattern Blood Pressure Blood Pressure Mean Pulse Oximetry 95 99 96 Oxygen Delivery Method Room Air Room Air Room Air Sepsis Recent Fever Within 48 Hours Sepsis New/Unexplained Change in Mental Status Sepsis Action Taken by Nursing 10/25/21 18:15 10/25/21 18:30 Temperature Temperature Source Pulse Rate 95 H 98 H Pulse Rhythm Pulse Strength Respiratory Rate 21 14 Respiratory Effort / Characteristics Respiratory Depth Respiratory Pattern Blood Pressure Blood Pressure Mean Pulse Oximetry 98 100 Oxygen Delivery Method Room Air Room Air Sepsis Recent Fever Within 48 Hours Sepsis New/Unexplained Change in Mental Status Sepsis Action Taken by [facility] Medications Current Medication List: was personally reviewed by me Laboratory Data Attestation: I reviewed the patient's lab results. Result diagrams: 10/26/21 05:27 10/26/21 05:27 Lab Results 10/25/21 10/25/21 10/25/21 Range/Units 16:50 16:50 16:50 WBC 9.85 (4.8-10.8) K/ul RBC 4.65 (3.93-5.22) M/uL Hgb 16.0 (12.0-16.0) g/dl Hct 42.5 (34.1-44.9) % MCV 91.4 (80.0-100.0) fL MCH 34.4 H (25.0-34.0) pg MCHC 37.6 H (32.0-36.0) g/dL RDW Std Deviation 45.7 (36.4-46.3) fL RDW Coeff of [place]re[place] 13.8 (11.5-14.5) % Plt Count 300 (130-400) K/uL MPV 10.3 (9.4-12.3) fL Immature Gran % (Auto) 0.0 % Neut % (Auto) 87.3 % Lymph % (Auto) 5.6 % [place] % (Auto) 7.1 % Eos % (Auto) 0.0 % Baso % (Auto) 0.0 % Neut # (Auto) 8.60 H (1.4-6.5) K/uL Lymph # (Auto) 0.55 L (1.2-3.4) K/uL [place] # (Auto) 0.70 (0.24-0.82) K/uL Eos # (Auto) 0.00 (0-0.50) K/uL Baso # (Auto) 0.00 (0-0.2) K/uL Immature Gran # (Auto) 0.00 (0.00-0.02) K/uL Target Cells 1+ PT (9.0-12.0) Seconds INR (0.9-1.1) Sodium 131 L (136-145) mmol/L Potassium 3.6 (3.5-5.1) mmol/L Chloride 89 L (98-107) mmol/L Carbon Dioxide 24 (21-32) mmol/L Anion Gap 18 H (3-11) BUN 3 L (6-23) mg/dl Creatinine 0.52 L (0.6-1.2) mg/dl Est Cr Clr Drug Dosing 96.9 ml/min Est GFR ( Amer) 118.7 ml/min Est GFR (Non-Af Amer) 102.4 ml/min BUN/Creatinine Ratio 5.8 L (10-20) Glucose 101 H (70-99(Fasting)) mg/dl Osmolality (280-300) mOsm/kg Calcium 10.0 (8.5-10.1) mg/dl Phosphorus 2.8 (2.5-4.9) mg/dl Magnesium 1.8 (1.7-2.4) mg/dl Total Bilirubin 1.5 H (0.2-1.0) mg/dl AST 58 H (13-39) U/L ALT 40 (7-52) U/L Alkaline Phosphatase 91 (34-104) U/L Total Protein 7.7 (6.0-8.3) gm/dl Albumin 5.0 (3.4-5.0) gm/dl Globulin 2.7 (2.5-4.0) gm/dl Albumin/Globulin Ratio 1.9 (0.9-2) Lipase 19 (11-82) U/L TSH (0.300-4.500) uIu/ml Ethyl Alcohol mg/dL < 10.0 (<10.0) mg/dl SARS-CoV-2, RNA, NAAT (NEGATIVE) 10/25/21 10/25/21 10/25/21 Range/Units 16:50 16:50 16:50 WBC (4.8-10.8) K/ul RBC (3.93-5.22) M/uL Hgb (12.0-16.0) g/dl Hct (34.1-44.9) % MCV (80.0-100.0) fL MCH (25.0-34.0) pg MCHC (32.0-36.0) g/dL RDW Std Deviation (36.4-46.3) fL RDW Coeff of [place] (11.5-14.5) % Plt Count (130-400) K/uL MPV (9.4-12.3) fL Immature Gran % (Auto) % Neut % (Auto) % Lymph % (Auto) % [place] % (Auto) % Eos % (Auto) % Baso % (Auto) % Neut # (Auto) (1.4-6.5) K/uL Lymph # (Auto) (1.2-3.4) K/uL [place] # (Auto) (0.24-0.82) K/uL Eos # (Auto) (0-0.50) K/uL Baso # (Auto) (0-0.2) K/uL Immature Gran # (Auto) (0.00-0.02) K/uL Target Cells PT 10.1 (9.0-12.0) Seconds INR 0.9 (0.9-1.1) Sodium (136-145) mmol/L Potassium (3.5-5.1) mmol/L Chloride (98-107) mmol/L Carbon Dioxide (21-32) mmol/L Anion Gap (3-11) BUN (6-23) mg/dl Creatinine (0.6-1.2) mg/dl Est Cr Clr Drug Dosing ml/min Est GFR ( Amer) ml/min Est GFR (Non-Af Amer) ml/min BUN/Creatinine Ratio (10-20) Glucose (70-99(Fasting)) mg/dl Osmolality 267 L (280-300) mOsm/kg Calcium (8.5-10.1) mg/dl Phosphorus (2.5-4.9) mg/dl Magnesium (1.7-2.4) mg/dl Total Bilirubin (0.2-1.0) mg/dl AST (13-39) U/L ALT (7-52) U/L Alkaline Phosphatase (34-104) U/L Total Protein (6.0-8.3) gm/dl Albumin (3.4-5.0) gm/dl Globulin (2.5-4.0) gm/dl Albumin/Globulin Ratio (0.9-2) Lipase (11-82) U/L TSH 3.620 (0.300-4.500) uIu/ml Ethyl Alcohol mg/dL (<10.0) mg/dl SARS-CoV-2, RNA, NAAT (NEGATIVE) 10/25/21 Range/Units 17:34 WBC (4.8-10.8) K/ul RBC (3.93-5.22) M/uL Hgb (12.0-16.0) g/dl Hct (34.1-44.9) % MCV (80.0-100.0) fL MCH (25.0-34.0) pg MCHC (32.0-36.0) g/dL RDW Std Deviation (36.4-46.3) fL RDW Coeff of [place] (11.5-14.5) % Plt Count (130-400) K/uL MPV (9.4-12.3) fL Immature Gran % (Auto) % Neut % (Auto) % Lymph % (Auto) % [place] % (Auto) % Eos % (Auto) % Baso % (Auto) % Neut # (Auto) (1.4-6.5) K/uL Lymph # (Auto) (1.2-3.4) K/uL [place] # (Auto) (0.24-0.82) K/uL Eos # (Auto) (0-0.50) K/uL Baso # (Auto) (0-0.2) K/uL Immature Gran # (Auto) (0.00-0.02) K/uL Target Cells PT (9.0-12.0) Seconds INR (0.9-1.1) Sodium (136-145) mmol/L Potassium (3.5-5.1) mmol/L Chloride (98-107) mmol/L Carbon Dioxide (21-32) mmol/L Anion Gap (3-11) BUN (6-23) mg/dl Creatinine (0.6-1.2) mg/dl Est Cr Clr Drug Dosing ml/min Est GFR ( Amer) ml/min Est GFR (Non-Af Amer) ml/min BUN/Creatinine Ratio (10-20) Glucose (70-99(Fasting)) mg/dl Osmolality (280-300) mOsm/kg Calcium (8.5-10.1) mg/dl Phosphorus (2.5-4.9) mg/dl Magnesium (1.7-2.4) mg/dl Total Bilirubin (0.2-1.0) mg/dl AST (13-39) U/L ALT (7-52) U/L Alkaline Phosphatase (34-104) U/L Total Protein (6.0-8.3) gm/dl Albumin (3.4-5.0) gm/dl Globulin (2.5-4.0) gm/dl Albumin/Globulin Ratio (0.9-2) Lipase (11-82) U/L TSH (0.300-4.500) uIu/ml Ethyl Alcohol mg/dL (<10.0) mg/dl SARS-CoV-2, RNA, NAAT NEGATIVE (NEGATIVE) Administered Medications Enoxaparin Sodium (Enoxaparin Inj 40 Mg/0.4 Ml Syr) 40 mg SQ QAM HERB Stop: 11/25/21 08:59 Last Admin: 10/26/21 08:35 Dose: Not Given Documented By: MG Folic Acid (Folic Acid 1 Mg Tab) 1 mg PO QAM HERB Stop: 11/25/21 08:59 Last Admin: 10/26/21 08:27 Dose: 1 mg Documented By: MG Gabapentin (Gabapentin 600 Mg Tab) 600 mg PO Q6H HERB Stop: 10/26/21 12:01 Last Admin: 10/26/21 06:02 Dose: 600 mg Documented By: MAC Lactated Ringer's (Lr) 1,000 mls @ 60 mls/hr IV .[id number] ONE Stop: 10/26/21 21:46 Last Admin: 10/26/21 06:00 Dose: 60 mls/hr Documented By: RICARDO Miscellaneous (Remove Nicoderm Patch) 1 each N/A DAILY@0859 [facility] Stop: 11/25/21 08:58 Last Admin: 10/26/21 08:31 Dose: 1 each Documented By: Multivitamins (Multivitamin Tab) 1 tab PO QAM [facility] Stop: 11/25/21 08:59 Last Admin: 10/26/21 08:28 Dose: 1 tab Documented By: MG Thiamine HCl (Thiamine Hcl 100 Mg Tab) 100 mg PO QAM [facility] Stop: 11/25/21 08:59 Last Admin: 10/26/21 08:27 Dose: 100 mg Documented By: MG Discontinued Medications Chlordiazepoxide HCl (Chlordiazepoxide Hcl 25 Mg Cap) 50 mg PO NOW ONE Stop: 10/25/21 19:24 Last Admin: 10/25/21 19:34 Dose: 50 mg Documented By: MARLA Clonidine HCl (Clonidine Hcl 0.1 Mg Tab) 0.1 mg PO NOW ONE Stop: 10/25/21 19:29 Last Admin: 10/25/21 19:41 Dose: 0.1 mg Documented By: MARLA Gabapentin (Gabapentin 600 Mg Tab) 1,200 mg PO NOW STA Stop: 10/25/21 20:29 Last Admin: 10/25/21 21:01 Dose: 1,200 mg Documented By: MARLA Multivitamins 10 ml/ Thiamine HCl 100 mg/ Folic Acid 1 mg/Sodium Chloride 1,011.2 mls @ 1,011.2 mls/hr IV .Q1H ONE Stop: 10/25/21 18:29 Last Infusion: 10/25/21 19:46 Dose: 0 mls/hr Documented By: Admin: 10/25/21 17:51 Dose: 1,011.2 mls/hr Documented By: LINDSAY Lorazepam 1 mg/ Syringe 1 mls @ 2 mls/min IV ONE PRN; Protocol PRN Reason: EtoH Withdrawal AWSS 6,7,8,9,10 Last Admin: 10/25/21 19:26 Dose: 2 mls/min Documented By: MARLA Lorazepam (Lorazepam 2 Mg/1 Ml Vial) Confirm Administered Dose 1 mg .ROUTE .STK- MED ONE Stop: 10/25/21 17:18 Last Admin: 10/25/21 17:21 Dose: 1 mg Documented By: LINDSAY Lorazepam (Lorazepam 2 Mg/1 Ml Vial) 1 mg IV NOW STA; Protocol Stop: 10/25/21 17:31 Last Admin: 10/25/21 17:44 Dose: Not Given Documented By: LINDSAY Nicotine (Nicotine 21 Mg/24 Hr Tdsy) 21 mg TD NOW STA Stop: 10/25/21 18:05 Last Admin: 10/25/21 18:16 Dose: 21 mg Documented By: LINDSAY Ondansetron HCl (Ondansetron Inj 2 Mg/Ml 2 Ml Vial) Confirm Administered Dose 4 mg .ROUTE .STK-MED ONE Stop: 10/25/21 17:17 Last Admin: 10/25/21 17:19 Dose: 4 mg Documented By: LINDSAY Ondansetron HCl (Ondansetron Inj 2 Mg/Ml 2 Ml Vial) 4 mg IV NOW STA Stop: 10/25/21 17:31 Last Admin: 10/25/21 17:44 Dose: Not Given Documented By: LINDSAY Imaging Data Radiologist's Impression: Chest X-Ray 10/25/21 19:32 XR chest 1V portable CLINICAL HISTORY: hyponatremia COMPARISON STUDY: Chest radiograph August 11, 2017. FINDINGS: Proximal left humeral internal fixation is incidentally noted. There is slight elevation of the left hemidiaphragm. Lungs are clear. There is no pneumothorax or pleural effusion. Cardiac size is normal. Mediastinal contours are normal. There is no evidence for pulmonary edema. No pulmonary nodules are identified although sensitivity is diminished given radiographic technique. IMPRESSION: 1. No acute cardiopulmonary findings. 2. No pulmonary nodules identified although sensitivity is diminished given radiographic technique. ACT 112: Negative or not required by law. Electronically signed by: John Ballard M.D. 10/25/2021 8:08 PM Discharge Plan Visit Data Chief Complaint: Vomiting ED Provider: Mushtaq Rodas Discharge Problem: Alcohol withdrawal, Nausea & vomiting, Transaminitis, Hyponatremia Patient Disposition: Admitted As Inpatient Discharge Instructions Interventions: ED Discharge Assessment Last Done: 10/25/21 23:02
[2021-10-25] MEDS ORDERED: ONDANSETRON INJ 2 MG/ML 2 ML VIAL ONE (17:16)
[2021-10-25] MEDS ORDERED: LORazepam 2 MG/1 ML VIAL ONE (17:17)
[2021-10-25] MEDS ORDERED: MULTI-VITAMIN INFUSION 10 ML, THIAMINE HCL 100 MG, FOLIC ACID 1 MG in SODIUM CHLORIDE 0... IV ONE (17:30)
[2021-10-25] MEDS ORDERED: LORazepam 2 MG/1 ML VIAL IV STA (17:30)
[2021-10-25] MEDS ORDERED: LORazepam 1 MG in SYRINGE 0.5 ML IV PRN ×2 (17:30→20:23)
[2021-10-25] MEDS ORDERED: ONDANSETRON INJ 2 MG/ML 2 ML VIAL IV STA (17:30)
[2021-10-25 17:54] LABS: Albumin Globulin Ratio 1.9 (0.9-2); BUN Creatinine Ratio 5.8 (10-20); Bilirubin,Total 1.5 mg/dl (0.2-1.0); Creatinine Clr Calc Pharmacy 96.9 ml/min; Est GFR (African American) 118.7 ml/min; Est GFR (Non-African American) 102.4 ml/min; Globulin 2.7 gm/dl (2.5-4.0); Magnesium 1.8 mg/dl (1.7-2.4); Phosphorus 2.8 mg/dl (2.5-4.9); Potassium 3.6 mmol/L (3.5-5.1); Total Protein 7.7 gm/dl (6.0-8.3)
[2021-10-25] MEDS ORDERED: NICOTINE 21 MG/24 HR TDSY TD STA (18:04)
[2021-10-25 19:12] LABS: Hematocrit (blood only) 42.5 % (34.1-44.9); Mean Corpuscular Hemoglobin 34.4 pg (25.0-34.0); Mean Corpuscular Hgb Conc 37.6 g/dL (32.0-36.0); Mean Corpuscular Volume 91.4 fL (80.0-100.0); Mean Platelet Volume 10.3 fL (9.4-12.3); Platelet Count 300 K/uL (130-400); RDW Coefficient of Variation 13.8 % (11.5-14.5); RDW Standard Deviation 45.7 fL (36.4-46.3); Red Blood Count 4.65 M/uL (3.93-5.22); White Blood Count 9.85 K/ul (4.8-10.8)
[2021-10-25 19:13] LABS: Lymphocytes # (auto) 0.55 K/uL (1.2-3.4); Lymphocytes % (auto) 5.6 %; Monocytes % (auto) 7.1 %; Neutrophils % (auto) 87.3 %; Target Cells 1+
[2021-10-25] MEDS ORDERED: chlordiazePOXIDE HCl 25 MG CAP PO ONE (19:23)
[2021-10-25] MEDS ORDERED: cloNIDine HCL 0.1 MG TAB PO ONE (19:28)
--- NOTE | 2021-10-25 19:31 | History & Physical Report ---
Date of Service October 25, 2021 Assessment & Plan (1) Alcohol withdrawal: Plan: Hypertension, elevated secondary to above hx colon cancer status post surgery, patient refused adjuvant chemotherapy as per outpatient oncology note, last outpatient CEA level within normal limits. Acute on chronic hyponatremia secondary to illness Chronic diarrhea, patient still has to comply with recommended stool testing by PCP ongoing tobacco abuse. Medical telemetry MARCELINO S, DT precautions Clonidine 1 dose now Careful correction of sodium Stool studies to rule out infectious causes for chronic diarrhea Nicotine patch as needed DVT prophylaxis. Lovenox subcu Full code Patient requesting to be discharged tomorrow morning if possible due to planned trip for [place] in the afternoon. Text document was generated using [employer] voice recognition software. It may contain grammatical or spelling errors. Kindly contact undersigned for clarification of any documentation item in question. History of Present Illness Chief Complaint: Nausea, vomiting, shaky Primary Care Provider: Mercy Linares, History obtained from patient and records. Medical history significant for situational HTN, colon cancer status post surgery, chronic hyponatremia, daily alcohol intake, ongoing tobacco abuse. Last confinement March 2016 for pneumonia. 2 months history of nonbloody diarrhea symptoms. No abdominal pain as per patient. No known recent sick contacts, no recent antibiotic Rx. Patient seen at PCPs office. He recommended CT imaging given colon cancer history but patient declined. Stool studies recommended. Patient with nausea vomiting symptoms the last few days. Abdominal discomfort from vomiting as per patient. No black/bloody stools. No chest pain, no SOB, no headache symptoms. Patient admits that alcohol intake can be heavy especially on the weekend. Last drink was a few days ago. Patient noted to be shaky today. Patient brought by to the ER for evaluation.. MEDICAL HISTORY: As above. SURGERIES: Some gynecologic procedures, partial colectomy, humerus fracture surgery FAMILY HISTORY:Skin cancer, hypertension PERSONAL AND SOCIAL HISTORY: Pack daily. Daily EtOH intake sometimes heavy on the weekends as per patient. Homemaker. Allergies Allergy/AdvReac Type Severity Reaction Status Date / Time amoxicillin Allergy Severe HIVES/TONGUE Verified 05/31/21 11:18 SWELLS metronidazole Allergy Unknown TOES Verified 05/31/21 11:18 SWELLING nickel Allergy Unknown RASH/ITCHIN Verified 05/31/21 11:18 G Penicillins Allergy Unknown SWELLING Verified 05/31/21 11:18 ALL OVER BODY Home Medications Medication Instructions Recorded Confirmed Type ascorbic acid (vitamin C) 500 mg 500 mg PO DAILY 05/21/19 05/31/21 History tablet flaxseed oil 5 ml miscellaneous BID 05/21/19 05/31/21 History nystatin-triamcinolone 100,000 1 applic topical BID #30 grams 11/15/20 05/31/21 Rx unit/gram-0.1 % topical ointment Past Med/Surg History Medical History Fibroid uterus Surgical History History of left oophorectomy Status post hysteroscopic ablation of endometrium Family History Mother Breast cancer Other No pertinent family history Denies family history of Ovarian cancer Prostate cancer Colorectal cancer Social History Smoking Status: Current every day smoker Tobacco Type: Cigarettes Do You Dip or Chew Tobacco: No; Tobacco Cessation Education Requested by Patient: No Hx Alcohol Use: Yes Alcohol type: beer Alcohol Intake Frequency: 4 or More x per/Week Alcohol Intake Frequency Comment: 5-10 beers/day Hx Substance Use: No Preferred Language: Amharic [employer] M[employer] Required: No Beliefs That Will Affect Care: None Current Living Situation: Spouse Other Information That Helps Us Care for You: No Feels Safe at Home: Yes Safety Concerns: Feels Safe At This Time Assistive Devices: Glasses Review of Systems Review of Systems: As per HPI, all other systems reviewed and negative Physical Exam Physical Exam: GENERAL: Slightly uncomfortable, tremulous, no respiratory distress SKIN: Normal color, warm HEENT: Bespectacled, pink palpebral conjunctivae, no ptosis, dry buccal mucosa NECK : Supple, no tenderness CHEST : CTA, no tenderness HEART : RRR, no obvious murmurs ABDOMEN: Some distention, nontender EXTREMITIES : No LE swelling/tenderness, no other conspicuous deformities noted NEUROLOGIC : Coherent, no facial asymmetry, tremulous, no other gross focality Results & Data Results & Data ([facility]) Vital Signs (Past 12 Hours) Vital Signs Temp Pulse Resp BP Pulse Ox O2 Del Method 10/25/21 18:30 98 H 14 100 Room Air 10/25/21 18:15 95 H 21 98 Room Air 10/25/21 18:00 98 H 18 96 Room Air 10/25/21 17:45 86 28 H 99 Room Air 10/25/21 17:30 78 19 95 Room Air 10/25/21 17:26 186/97 H 10/25/21 17:26 97 H 25 H 92 Room Air 10/25/21 17:15 92 H 19 100 Room Air 10/25/21 17:00 92 H 25 H 99 Room Air 10/25/21 16:49 187/156 H 10/25/21 16:49 87 25 H 91 Room Air 10/25/21 16:48 108 H 24 99 Room Air 10/25/21 18:44 98 H 22 96 Room Air 10/25/21 16:50 36.7 C 82 23 99 Room Air Laboratory Results Laboratory Results WBC 9.85 K/ul (4.8-10.8) 10/25/21 16:50 RBC 4.65 M/uL (3.93-5.22) 10/25/21 16:50 Hgb 16.0 g/dl (12.0-16.0) 10/25/21 16:50 Hct 42.5 % (34.1-44.9) 10/25/21 16:50 MCV 91.4 fL (80.0-100.0) 10/25/21 16:50 MCH 34.4 pg (25.0-34.0) H 10/25/21 16:50 MCHC 37.6 g/dL (32.0-36.0) H 10/25/21 16:50 RDW Std Deviation 45.7 fL (36.4-46.3) 10/25/21 16:50 RDW Coeff of Nereida 13.8 % (11.5-14.5) 10/25/21 16:50 Plt Count 300 K/uL (130-400) 10/25/21 16:50 MPV 10.3 fL (9.4-12.3) 10/25/21 16:50 Immature Gran % (Auto) 0.0 % 10/25/21 16:50 Neut % (Auto) 87.3 % 10/25/21 16:50 Lymph % (Auto) 5.6 % 10/25/21 16:50 Edgar % (Auto) 7.1 % 10/25/21 16:50 Eos % (Auto) 0.0 % 10/25/21 16:50 Baso % (Auto) 0.0 % 10/25/21 16:50 Neut # (Auto) 8.60 K/uL (1.4-6.5) H 10/25/21 16:50 Lymph # (Auto) 0.55 K/uL (1.2-3.4) L 10/25/21 16:50 Edgar # (Auto) 0.70 K/uL (0.24-0.82) 10/25/21 16:50 Eos # (Auto) 0.00 K/uL (0-0.50) 10/25/21 16:50 Baso # (Auto) 0.00 K/uL (0-0.2) 10/25/21 16:50 Immature Gran # (Auto) 0.00 K/uL (0.00-0.02) 10/25/21 16:50 Target Cells 1+ 10/25/21 16:50 PT 10.1 Seconds (9.0-12.0) 10/25/21 16:50 INR 0.9 (0.9-1.1) 10/25/21 16:50 Sodium 131 mmol/L (136-145) L 10/25/21 16:50 Potassium 3.6 mmol/L (3.5-5.1) 10/25/21 16:50 Chloride 89 mmol/L (98-107) L 10/25/21 16:50 Carbon Dioxide 24 mmol/L (21-32) 10/25/21 16:50 Anion Gap 18 (3-11) H 10/25/21 16:50 BUN 3 mg/dl (6-23) L 10/25/21 16:50 Creatinine 0.52 mg/dl (0.6-1.2) L 10/25/21 16:50 Est Cr Clr Drug Dosing 96.9 ml/min 10/25/21 16:50 Est GFR ( Amer) 118.7 ml/min 10/25/21 16:50 Est GFR (Non-Af Amer) 102.4 ml/min 10/25/21 16:50 BUN/Creatinine Ratio 5.8 (10-20) L 10/25/21 16:50 Glucose 101 mg/dl (70-99(Fasting)) H 10/25/21 16:50 Osmolality 267 mOsm/kg (280-300) L 10/25/21 16:50 Calcium 10.0 mg/dl (8.5-10.1) 10/25/21 16:50 Phosphorus 2.8 mg/dl (2.5-4.9) 10/25/21 16:50 Magnesium 1.8 mg/dl (1.7-2.4) 10/25/21 16:50 Total Bilirubin 1.5 mg/dl (0.2-1.0) H 10/25/21 16:50 AST 58 U/L (13-39) H 10/25/21 16:50 ALT 40 U/L (7-52) 10/25/21 16:50 Alkaline Phosphatase 91 U/L (34-104) 10/25/21 16:50 Total Protein 7.7 gm/dl (6.0-8.3) 10/25/21 16:50 Albumin 5.0 gm/dl (3.4-5.0) 10/25/21 16:50 Globulin 2.7 gm/dl (2.5-4.0) 10/25/21 16:50 Albumin/Globulin Ratio 1.9 (0.9-2) 10/25/21 16:50 Lipase 19 U/L (11-82) 10/25/21 16:50 TSH 3.620 uIu/ml (0.300-4.500) 10/25/21 16:50 Ethyl Alcohol mg/dL < 10.0 mg/dl (<10.0) 10/25/21 16:50 SARS-CoV-2, RNA, NAAT NEGATIVE (NEGATIVE) 10/25/21 17:34 Impressions Chest X-Ray 10/25/21 19:32 XR chest 1V portable CLINICAL HISTORY: hyponatremia COMPARISON STUDY: Chest radiograph August 11, 2017. FINDINGS: Proximal left humeral internal fixation is incidentally noted. There is slight elevation of the left hemidiaphragm. Lungs are clear. There is no pneumothorax or pleural effusion. Cardiac size is normal. Mediastinal contours are normal. There is no evidence for pulmonary edema. No pulmonary nodules are identified although sensitivity is diminished given radiographic technique. IMPRESSION: 1. No acute cardiopulmonary findings. 2. No pulmonary nodules identified although sensitivity is diminished given radiographic technique. ACT 112: Negative or not required by law. Electronically signed by: John Ballard M.D. 10/25/2021 8:08 PM Diagnostic Findings EKG as per my interpretation :Rate 90, NSR, normal axis, no ischemia, multiple artifacts
--- NOTE | 2021-10-25 20:10 | XRay Report ---
XR chest 1V portable CLINICAL HISTORY: hyponatremia COMPARISON STUDY: Chest radiograph August 11, 2017. FINDINGS: Proximal left humeral internal fixation is incidentally noted. There is slight elevation of the left hemidiaphragm. Lungs are clear. There is no pneumothorax or pleural effusion. Cardiac size is normal. Mediastinal contours are normal. There is no evidence for pulmonary edema. No pulmonary no dules are identified although sensitivity is diminished given radiographic technique. IMPRESSION: 1. No acute cardiopulmonary findings. 2. No pulmonary nodules identified although sensitivity is diminished given radiographic technique. ACT 112: Negative or not required by law. Electronically signed by: John Ballard M.D. 10/25/2021 8:08 PM
[2021-10-25] MEDS ORDERED: PROMETHAZINE HCL 6.25 MG in SODIUM CHLORIDE 0.9% 50 ML IV PRN (20:23)
[2021-10-25] MEDS ORDERED: Ativan IV Alcohol Withdrawal--Active Protocol IV PRN (20:23)
[2021-10-25] MEDS ORDERED: GABAPENTIN 1200MG ALCOHOL WITHDRAWAL LOAD PO STA (20:23)
[2021-10-25] MEDS ORDERED: LORazepam 3 MG in SYRINGE 1.5 ML IV PRN (20:23)
[2021-10-25] MEDS ORDERED: LORazepam 2 MG in SYRINGE 1 ML IV PRN (20:23)
[2021-10-25] MEDS ORDERED: oxyCODONE HCL IR 5 MG TAB (IMMEDIATE RELEASE) PO PRN (20:23)
[2021-10-25] MEDS ORDERED: GABAPENTIN 600 MG TAB PO STA (20:28)
[2021-10-25 20:45] LABS: INR 0.9 (0.9-1.1); Prothrombin Time 10.1 Seconds (9.0-12.0)
[2021-10-25] MEDS ORDERED: ACETAMINOPHEN 325 MG TAB PO PRN (23:04)
[2021-10-26] MEDS ORDERED: LACTATED RINGER'S 1,000 ML IV ONE (05:07)
[2021-10-26] MEDS: GABAPENTIN 600 MG TAB PO SCH ×3 (06:02→21:36)
[2021-10-26 07:22] LABS: BUN Creatinine Ratio 6.7 (10-20); Bilirubin,Total 1.5 mg/dl (0.2-1.0); Calcium 8.6 mg/dl (8.5-10.1); Creatinine Clr Calc Pharmacy 110.9 ml/min; Est GFR (African American) 124.5 ml/min; Est GFR (Non-African American) 107.4 ml/min; Potassium 3.1 mmol/L (3.5-5.1)
[2021-10-26 07:38] LABS: Basophils # (auto) 0.04 K/uL (0-0.2); Basophils % (auto) 0.8 %; Eosinophils # (auto) 0.06 K/uL (0-0.50); Eosinophils % (auto) 1.3 %; Hematocrit (blood only) 39.7 % (34.1-44.9); Hemoglobin 14.2 g/dl (12.0-16.0); Immature Granulocytes # (auto) 0.01 K/uL (0.00-0.02); Immature Granulocytes % (auto) 0.2 %; Lymphocytes # (auto) 1.26 K/uL (1.2-3.4); Lymphocytes % (auto) 26.4 %; Mean Corpuscular Hemoglobin 33.7 pg (25.0-34.0); Mean Corpuscular Hgb Conc 35.8 g/dL (32.0-36.0); Mean Corpuscular Volume 94.3 fL (80.0-100.0); Mean Platelet Volume 9.9 fL (9.4-12.3); Monocytes # (auto) 0.62 K/uL (0.24-0.82); Neutrophils # (auto) 2.78 K/uL (1.4-6.5); Neutrophils % (auto) 58.3 %; Platelet Count 272 K/uL (130-400); RDW Coefficient of Variation 14.5 % (11.5-14.5); RDW Standard Deviation 50.2 fL (36.4-46.3); Red Blood Count 4.21 M/uL (3.93-5.22); White Blood Count 4.77 K/ul (4.8-10.8)
[2021-10-26] MEDS: ENOXAPARIN INJ 40 MG/0.4 ML SYR SQ SCH ×2 (08:26→08:35)
[2021-10-26] MEDS: THIAMINE HCL 100 MG TAB PO SCH (08:27)
[2021-10-26] MEDS: FOLIC ACID 1 MG TAB PO SCH (08:27)
[2021-10-26] MEDS: MULTIVITAMIN TAB PO SCH (08:28)
[2021-10-26] MEDS ORDERED: POTASSIUM CHLORIDE CRTAB 20 MEQ TABCR PO STA (08:55)
--- NOTE | 2021-10-26 10:09 | Ultrasound Report ---
ULTRASOUND LEFT LOWER EXTREMITY ARTERIAL; ANKLE BRACHIAL INDICES CLINICAL HISTORY: Weak left lower extremity pulses. COMPARISON STUDY: No priors. FINDINGS: Real-time grayscale and color Doppler sonography of the arteries of the left lower extremit y is performed from the inguinal crease to the foot. Ankle brachial indices were assessed. FINDINGS: Ankle brachial indices: Right brachial pressure measures 139 and left brachial pressure measures 144. Pressures in the right posterior tibial artery measure 152 for an SHANNAN of 1.06, and pressures in the right dorsalis pedis measure 140 for an SHANNAN of 0.97. Pressures in the left posterior tibial artery me asure 175 for an SHANNAN of 1.22, and pressures in the left dorsalis pedis measure 151 for an SHANNAN of 1.05 . Left lower extremity: There is mild atherosclerotic plaque and irregularity. There are triphasic wave forms in the common femoral artery with velocities measuring up to 83 cm/s. The profunda femoris malvin ry is patent with velocities measuring up to 59 cm/s. Triphasic waveforms are seen throughout the sup erficial femoral and popliteal artery. Velocities in the superficial femoral artery measure up to 76 cm/s, and velocities in the popliteal artery measure up to 58 cm/s. There are triphasic and biphasic arterial waveforms throughout the calf arteries. Three-vessel runoff to foot is noted. Velocities in the calf arteries measure up to 71 cm/s. The dorsalis pedis artery is patent with velocities measurin g up to 35 cm/s. A popliteal cyst measures 2.6 x 0.8 x 2.8 cm. IMPRESSION: 1. There is no sonographic evidence of high-grade stenosis or focal vessel cut off throughout the art eries of the upper extremity. 2. Ankle brachial indices as above. 3. Albert's cyst. Dictated: 10/26/2021 7:52 AM Transcribed: 10/26/2021 8:55 AM Lilian [id number] SIENNA_Lauri Electronically signed by: Derek Simpson M.D. 10/26/2021 10:08 AM
--- NOTE | 2021-10-26 10:39 | Hospitalist Progress Note ---
Date of Service October 26, 2021 Assessment & Plan (1) Nausea & vomiting: (2) Hyponatremia: (3) Alcohol withdrawal: Plan 60-year-old woman with history of colon cancer status post surgery, chronic hyponatremia, alcohol use who presented with chronic diarrhea and intractable nausea and vomiting. Nausea and vomiting improved today. Send stool sample once patient has bowel movement. Tolerating clears. Will advance diet to regular and monitor tolerance. Continue IV fluid for rehydration. Counseled patient extensively on need to quit alcohol use. who was at bedside also concurs. Continue [facility] protocol for alcohol withdrawal management. Patient has hypokalemia today. Check magnesium level. Replete electrolytes and monitor. Patient will need to follow-up PCP eventually for continued evaluation of chronic diarrhea. Per admitting provider, patient had declined CT imaging recommended by PCP given colon cancer history. We will reevaluate this with patient. Reports she has anxiety but follows with therapist. Denied any depression/SI/HI DVT ppx - lovenox Admission and Anticipated Discharge Date Admission Date: October 25, 2021 Subjective Patient seen and examined. Reports nausea and vomiting is resolved. Reports some abdominal soreness which she attributed to the vomiting. Has not had any diarrhea today. Denies dysuria, frequency, urgency. Reports improvement in tremors. Acknowledged that last drink was on Saturday. Denies any chest pain, cough, shortness of breath Denies any fevers, chills Denies headache, dizziness Review of Systems Review of Systems: All systems reviewed & are unremarkable except as noted in Subjective Physical Exam Constitutional: + well hydrated; no acute distress Eyes: PERRL, conjunctivae normal, anicteric sclerae ENMT: external ear and nose normal, oropharynx normal Respiratory: normal respiratory effort, lungs clear to auscultation Cardiovascular: Rate/Rhythm: regular rate and regular rhythm S1 S2 Gastrointestinal (Abdomen): normal bowel sounds, soft, nontender, no hepatosplenomegaly Musculoskeletal: no cyanosis or clubbing, extremities motor strength 5/5 Neurologic: PERRL, EOMI, accommodation nl, no face palsy, no dysarthria No tremors Psychiatric: A+Ox3, euthymic affect Results & Data Results & Data ([facility]) Vital Signs (Past 12 Hours) Vital Signs Temp Pulse Pulse Pulse Resp BP Pulse Ox 10/26/21 07:42 36.4 C L 80 18 159/89 H 98 10/26/21 06:14 77 10/26/21 03:29 36.6 C 67 16 130/83 96 10/26/21 00:10 86 10/26/21 00:00 10/26/21 00:00 36.5 C 85 16 127/79 96 O2 Del Method 10/26/21 07:42 Room Air 10/26/21 06:14 10/26/21 03:29 Room Air 10/26/21 00:10 10/26/21 00:00 Room Air 10/26/21 00:00 Room Air Laboratory Results Abnormal lab results 10/25/21 10/25/21 10/25/21 Range/Units 16:50 16:50 16:50 WBC (4.8-10.8) K/ul MCH 34.4 H (25.0-34.0) pg MCHC 37.6 H (32.0-36.0) g/dL RDW Std Deviation (36.4-46.3) fL Neut # (Auto) 8.60 H (1.4-6.5) K/uL Lymph # (Auto) 0.55 L (1.2-3.4) K/uL Sodium 131 L (136-145) mmol/L Potassium (3.5-5.1) mmol/L Chloride 89 L (98-107) mmol/L Anion Gap 18 H (3-11) BUN 3 L (6-23) mg/dl Creatinine 0.52 L (0.6-1.2) mg/dl BUN/Creatinine Ratio 5.8 L (10-20) Glucose 101 H (70-99(Fasting)) mg/dl Osmolality 267 L (280-300) mOsm/kg Total Bilirubin 1.5 H (0.2-1.0) mg/dl AST 58 H (13-39) U/L Globulin (2.5-4.0) gm/dl 10/26/21 10/26/21 Range/Units 05:27 05:27 WBC 4.77 L D (4.8-10.8) K/ul MCH (25.0-34.0) pg MCHC (32.0-36.0) g/dL RDW Std Deviation 50.2 H (36.4-46.3) fL Neut # (Auto) (1.4-6.5) K/uL Lymph # (Auto) (1.2-3.4) K/uL Sodium 132 L (136-145) mmol/L Potassium 3.1 L (3.5-5.1) mmol/L Chloride 96 L (98-107) mmol/L Anion Gap (3-11) BUN 3 L (6-23) mg/dl Creatinine 0.45 L (0.6-1.2) mg/dl BUN/Creatinine Ratio 6.7 L (10-20) Glucose (70-99(Fasting)) mg/dl Osmolality (280-300) mOsm/kg Total Bilirubin 1.5 H (0.2-1.0) mg/dl AST (13-39) U/L Globulin 2.0 L (2.5-4.0) gm/dl
[2021-10-26 13:03] LABS: Appearance Urine Clear (Clear); Bilirubin Urine Negative (Negative); Blood Urine Negative (Negative); Color Urine Yellow; Glucose Urine UA Negative (Negative); Ketones Urine Negative (Negative); Leukocyte Esterase Urine Negative (Negative); Nitrite Urine Negative (Negative); Protein Urine Negative (Negative); Specific Gravity Urine 1.004 (1.000-1.030); Urobilinogen Urine Negative (Negative)
[2021-10-26 14:45] LABS: Adenovirus F 40/41 PCR Not Detected (NotDetected); Astrovirus PCR Not Detected (NotDetected); Campylobacter PCR Not Detected (NotDetected); Clostridium diff Toxin A/B PCR Not Detected (NotDetected); Cryptosporidium PCR Not Detected (NotDetected); Cyclospora cayetanensis PCR Not Detected (NotDetected); Entamoeba histolytica PCR Not Detected (NotDetected); Enteroaggregative E.coli(EAEC) Not Detected (NotDetected); Enteropathogenic E.coli (EPEC) Not Detected (NotDetected); Enterotoxigenic E.coli (ETEC) Not Detected (NotDetected); Giardia lamblia PCR Not Detected (NotDetected); Norovirus GI/GII PCR Not Detected (NotDetected); Plesiomonas shigelloides PCR Not Detected (NotDetected); Rotavirus A PCR Not Detected (NotDetected); Salmonella PCR Not Detected (NotDetected); Sapovirus PCR Not Detected (NotDetected); Shiga-like Toxin E.coli (STEC) Not Detected (NotDetected); Shigella/Enteroinvasive E.coli Not Detected (NotDetected); Vibrio cholerae PCR Not Detected (NotDetected); Vibrio species PCR Not Detected (NotDetected); Yersinia enterocolitica PCR Not Detected (NotDetected)
--- NOTE | 2021-10-26 17:41 | Electrocardiogram Report ---
Test Reason : Blood Pressure : / mmHG Vent. Rate : 089 BPM Atrial Rate : 089 BPM P-R Int : 182 ms QRS Dur : 074 ms QT Int : 414 ms P-R-T Axes : 059 022 046 degrees QTc Int : 503 ms Sinus rhythm with Premature atrial complexes Possible Left atrial enlargement Prolonged QT Abnormal ECG When compared with ECG of 12-AUG-2017 16:05, Premature atrial complexes are now Present QT has lengthened Confirmed by Donny Rawls ([id number]) on 10/26/2021 5:41:33 PM Referred By: REFERRED SELF Confirmed By:Soto Rawls
[2021-10-26] MEDS: NICOTINE 21 MG/24 HR TDSY TD SCH (20:56)
[2021-10-27] MEDS: GABAPENTIN 600 MG TAB PO SCH (05:06)
[2021-10-27 06:40] LABS: Calcium 9.1 mg/dl (8.5-10.1); Creatinine Clr Calc Pharmacy 83.9 ml/min; Est GFR (African American) 113.2 ml/min; Est GFR (Non-African American) 97.7 ml/min; Magnesium 1.8 mg/dl (1.7-2.4); Potassium 3.5 mmol/L (3.5-5.1)
[2021-10-27] MEDS: MULTIVITAMIN TAB PO SCH (08:28)
[2021-10-27] MEDS: THIAMINE HCL 100 MG TAB PO SCH (08:28)
[2021-10-27] MEDS: NICOTINE 21 MG/24 HR TDSY TD SCH (08:28)
[2021-10-27] MEDS: FOLIC ACID 1 MG TAB PO SCH (08:28)
[2021-10-27] MEDS: ENOXAPARIN INJ 40 MG/0.4 ML SYR SQ SCH (08:30)
--- NOTE | 2021-10-27 10:51 | Discharge Summary ---
Date of Service October 27, 2021 Admission HPI Per Admitting Provider History obtained from patient and records. Medical history significant for situational HTN, colon cancer status post surgery, chronic hyponatremia, daily alcohol intake, ongoing tobacco abuse. Last confinement March 2016 for pneumonia. 2 months history of nonbloody diarrhea symptoms. No abdominal pain as per patient. No known recent sick contacts, no recent antibiotic Rx. Patient seen at PCPs office. He recommended CT imaging given colon cancer history but patient declined. Stool studies recommended. Patient with nausea vomiting symptoms the last few days. Abdominal discomfort from vomiting as per patient. No black/bloody stools. No chest pain, no SOB, no headache symptoms. Patient admits that alcohol intake can be heavy especially on the weekend. Last drink was a few days ago. Patient noted to be shaky today. Patient brought by to the ER for evaluation.. MEDICAL HISTORY: As above. SURGERIES: Some gynecologic procedures, partial colectomy, humerus fracture surgery FAMILY HISTORY:Skin cancer, hypertension PERSONAL AND SOCIAL HISTORY: Pack daily. Daily EtOH intake sometimes heavy on the weekends as per patient. Homemaker. Admission Exam Per Admitting Provider GENERAL: Slightly uncomfortable, tremulous, no respiratory distress SKIN: Normal color, warm HEENT: Bespectacled, pink palpebral conjunctivae, no ptosis, dry buccal mucosa NECK : Supple, no tenderness CHEST : CTA, no tenderness HEART : RRR, no obvious murmurs ABDOMEN: Some distention, nontender EXTREMITIES : No LE swelling/tenderness, no other conspicuous deformities noted NEUROLOGIC : Coherent, no facial asymmetry, tremulous, no other gross focality Principal Diagnosis Nausea, vomiting Alcohol withdrawal Discharge Exam Constitutional + well hydrated; no acute distress Eyes PERRL, conjunctivae normal, anicteric sclerae ENMT external ear and nose normal, oropharynx normal Respiratory normal respiratory effort, lungs clear to auscultation Cardiovascular Rate/Rhythm: regular rate and regular rhythm S1 S2 Gastrointestinal (Abdomen) normal bowel sounds, soft, nontender, no hepatosplenomegaly Musculoskeletal no cyanosis or clubbing, extremities motor strength 5/5 Neurologic PERRL, EOMI, accommodation nl, no face palsy, no dysarthria Psychiatric A+Ox3, euthymic affect Discharge Data Allergies Allergy/AdvReac Type Severity Reaction Status Date / Time amoxicillin Allergy Severe HIVES/TONGUE Verified 05/31/21 11:18 SWELLS metronidazole Allergy Unknown TOES Verified 05/31/21 11:18 SWELLING nickel Allergy Unknown RASH/ITCHIN Verified 05/31/21 11:18 G Penicillins Allergy Unknown SWELLING Verified 05/31/21 11:18 ALL OVER BODY Consultations 10/25/21 19:48 ED Decision to Admit Stat Ordered Studies 10/26/21 01:48 US arterial duplex LE LT Urgent Ankle brachial indices: Right brachial pressure measures 139 and left brachial pressure measures 144. Pressures in the right posterior tibial artery measure 152 for an SHANNAN of 1.06, and pressures in the right dorsalis pedis measure 140 for an SHANNAN of 0.97. Pressures in the left posterior tibial artery measure 175 for an SHANNAN of 1.22, and pressures in the left dorsalis pedis measure 151 for an SHANNAN of 1.05. Left lower extremity: There is mild atherosclerotic plaque and irregularity. There are triphasic waveforms in the common femoral artery with velocities measuring up to 83 cm/s. The profunda femoris artery is patent with velocities measuring up to 59 cm/s. Triphasic waveforms are seen throughout the superficial femoral and popliteal artery. Velocities in the superficial femoral artery measure up to 76 cm/s, and velocities in the popliteal artery measure up to 58 cm/s. There are triphasic and biphasic arterial waveforms throughout the calf arteries. Three-vessel runoff to foot is noted. Velocities in the calf arteries measure up to 71 cm/s. The dorsalis pedis artery is patent with velocities measuring up to 35 cm/s. A popliteal cyst measures 2.6 x 0.8 x 2.8 cm. IMPRESSION: 1. There is no sonographic evidence of high-grade stenosis or focal vessel cut off throughout the arteries of the upper extremity. 2. Ankle brachial indices as above. 3. Albert's cyst Hospital Course (1) Nausea & vomiting: (2) Hyponatremia: (3) Alcohol withdrawal: Plan 60-year-old woman with history of colon cancer status post surgery, chronic hyponatremia, alcohol use who presented with chronic diarrhea and intractable nausea and vomiting. Nausea and vomiting resolved Stool analysis negative Was managed with IVF fluids and alcohol withdrawal protocol Patient reports diarrhea is resolved today Tolerating po diet well Patient intermittently has elevated blood pressure. BP this AM was 170/90. BP recordings fluctuated from normal to elevated. She reported this is due to her anxiety. She declined any medication at this time. Reports she has anxiety but follows with therapist. Denied any depression/SI/HI Patient advised to follow up with PCP and if BP is elevated on follow up, she will need antihypertensives. Counseled extensively on need to quit alcohol completely Total Time Total Time Spent Total Time Spent (In Minutes): 40 Total Time Includes: Examination of the Patient, Discharge Planning and Medication Reconciliation Discharge Plan Discharge Items Patient Disposition: Home - Self-Care Reason For Visit: ETOH WITHDRAWAL Discharge Diagnosis: Nausea, vomiting Alcohol withdrawal Activity: Resume your previous activity Non-emergency contact: Primary Care Provider Call non-emergency contact if: you have any medication questions and your symptoms worsen Follow-up/Referrals: Mercy Linares, [Primary Care Provider] - (Date & Time 11/02/2021 12:00 PM Provider Mikel Shea MD [facility] ) Diet: Heart Healthy Addtl Attending Provider Instructions: Mrs Georges. You came to the hospital complaining of nausea, vomiting and shd diarrhea. You were evaluated and managed for alcohol withdrawal. Your symptoms resolved. You are being discharged home. Please quit alcohol use. Please ensure follow up with your Primary Doctor. Your blood pressure was intermittently elevated during your hospital stay. Please ensure follow up with your therapist. Your Primary Doctor will reevaluate during your follow up and may start you on blood pressure medications if needed. It was a pleasure taking care of you. Pending Studies at Discharge: No Stand-Alone Forms: My [facility] EXPO, Smoking Cessation Medications and DC Order Prescriptions: New folic acid 1 mg Tablet 1 mg PO QAM Qty: 30 0RF thiamine HCl (vitamin B1) 100 mg Tablet 100 mg PO QAM Qty: 30 0RF Continued ascorbic acid (vitamin C) 250 mg PO DAILY calcium 150 mg PO HS ferrous sulfate 325 mg PO BID magnesium 200 mg PO HS flaxseed 1,000 mg PO HS Discharge Orders: Discharge Order (Routine); Ordered 10/27/21 Ordered By: Kasia Fermin/Other Patient Handouts: Social Drinking vs Problem Drinking, SCI Alcohol Use, Alcohol Withdrawal: What to Expect, Blood Pressure Check Steps Admission Data Admit Date/Time: 10/25/21 20:21 Attending Provider: Kasia Bear I. Admit Provider: Jan Green Primary Care Provider: Mercy Linares Other Providers: Jan Green Other Interventions: Discharge Summary Assessment (RN) Last Done: 10/27/21 11:05
[2021-10-28] MEDS ORDERED: GABAPENTIN 600 MG TAB PO SCH
[2021-10-29] MEDS ORDERED: GABAPENTIN 600 MG TAB PO SCH (12:00)
== END 2021-10-27 11:37 | disposition home or self-care (01) | DRG 897 ==
LOC: ED 16:41 → EDINP 20:21 → SUATTDRO 20:21 → 2N 23:02